=== PATIENT | female | born 1990 | race American Indian/Alaskan Native ===

== ENCOUNTER 2021-12-30 02:54 | Emergency (ER) | payer MEDICAID ==
[2021-12-30 04:08] LABS: Hematocrit 33.9 % (30.3-42.9); Mean Corpuscular HGB Conc 32 % (30-34); Mean Corpuscular Volume 86 fl (79-97); Platelet Count 349 K/mm3 (140-440); Red Blood Count 3.96 M/mm3 (3.65-5.03); Red Cell Distribution Width 14.7 % (13.2-15.2)
[2021-12-30 04:23] LABS: Basophils % (Auto) 0.6 % (0.0-1.8); Eosinophils # (Auto) 0.1 K/mm3 (0.0-0.4); Lymphocytes # (Auto) 1.8 K/mm3 (1.2-5.4); Lymphocytes % (Auto) 22.9 % (13.4-35.0); Monocytes # (Auto) 0.4 K/mm3 (0.0-0.8)
[2021-12-30] MEDS ORDERED: traMADol 50 MG TAB PO ONE (08:43)
--- NOTE | 2021-12-30 09:44 | Emergency Department Report ---
ED Female HPI - General Chief complaint: Vaginal Bleeding Stated complaint: VAGINAL BLEEDING, CRAMPS Time Seen by Provider: 12/30/21 08:43 Source: patient Mode of arrival: Stretcher Limitations: No Limitations - History of Present Illness Initial comments: Patient 31-year-old female who is A1 2 miscarriage 3 months ago. States for cycle since with heavy bleeding. There is no fevers no chills no nausea no vomiting abdominal cramping is rated at 4/10. Patient denies dysuria frequency or urgency. 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 Bleeding is moderate requiring 3-4 pads daily. There is no dizziness, lightheadedness no shortness of breath. Symptoms are improved with nothing tried. Symptoms are exacerbated by activity and movement. Patient is tolerating p.o. intake without nausea or vomiting. MD Complaint: vaginal bleeding - Related Data Previous Rx's Medication Instructions Recorded Last Taken Type Ibuprofen [Motrin 800 MG tab] 800 mg PO Q8HR PRN #30 tablet 12/30/21 Unknown Rx traMADoL [Ultram 50 MG tab] 50 mg PO Q6HR PRN #3 tablet 12/30/21 Unknown Rx Allergies Allergy/AdvReac Type Severity Reaction Status Date / Time No Known Allergies Allergy Unverified 12/30/21 03:12 ED Review of Systems ROS: Stated complaint: VAGINAL BLEEDING, CRAMPS Other details as noted in HPI Constitutional: denies: chills, fever Eyes: denies: eye pain, eye discharge, vision change ENT: denies: ear pain, throat pain Respiratory: denies: cough, shortness of breath, wheezing Cardiovascular: denies: chest pain, palpitations Endocrine: no symptoms reported Gastrointestinal: abdominal pain (Described as cramping). denies: diarrhea, constipation, melena Genitourinary: abnormal menses. denies: urgency, dysuria, frequency, hematuria, discharge Musculoskeletal: back pain Skin: denies: rash, lesions Neurological: denies: headache, weakness, paresthesias, vertigo Psychiatric: denies: anxiety, depression Hematological/Lymphatic: denies: easy bleeding, easy bruising ED Past Medical Hx - Past Medical History Previous Medical History?: No - Surgical History Past Surgical History?: No - Social History Smoking Status: Never Smoker Substance Use Type: None - Medications Home Medications: Home Medications Medication Instructions Recorded Confirmed Last Taken Type Ibuprofen [Motrin 800 MG tab] 800 mg PO Q8HR PRN #30 tablet 12/30/21 Unknown Rx traMADoL [Ultram 50 MG tab] 50 mg PO Q6HR PRN #3 tablet 12/30/21 Unknown Rx ED Physical Exam - General Limitations: No Limitations General appearance: alert, in no apparent distress - Head Head exam: Present: atraumatic, normocephalic - Eye Eye exam: Present: normal appearance, EOMI Pupils: Present: normal accommodation - ENT ENT exam: Present: mucous membranes moist - Neck Neck exam: Present: normal inspection, full ROM. Absent: tenderness, lymphadenopathy - Respiratory Respiratory exam: Present: normal lung sounds bilaterally. Absent: respiratory distress, wheezes, stridor - Cardiovascular Cardiovascular Exam: Present: regular rate, normal rhythm, normal heart sounds. Absent: systolic murmur, diastolic murmur, rubs, gallop - GI/Abdominal GI/Abdominal exam: Present: soft, normal bowel sounds. Absent: distended, tenderness, guarding, rebound, rigid, bruit, hernia - Rectal Rectal exam: Present: deferred - Extremities Exam Extremities exam: Present: normal inspection, full ROM, normal capillary refill. Absent: pedal edema - Back Exam Back exam: Present: normal inspection, full ROM. Absent: CVA tenderness (R), CVA tenderness (L) - Neurological Exam Neurological exam: Present: alert, CN II-XII intact, normal gait - Expanded Neurological Exam Expanded Patient oriented to: Present: person, place, time - Psychiatric Psychiatric exam: Present: normal affect, normal mood - Skin Skin exam: Present: warm, dry, intact, normal color. Absent: rash ED Course Vital Signs 12/30/21 03:13 Temperature 98 F Pulse Rate 80 Respiratory 18 Rate Blood Pressure 110/80 O2 Sat by Pulse 100 Oximetry ED Medical Decision Making - Lab Data Result diagrams: 12/30/21 03:39 Labs 12/30/21 12/30/21 12/30/21 03:39 03:39 03:39 WBC 8.1 RBC 3.96 Hgb 11.0 Hct 33.9 MCV 86 MCH 28 MCHC 32 RDW 14.7 Plt Count 349 Lymph % (Auto) 22.9 [place] % (Auto) 5.0 Eos % (Auto) 1.0 Baso % (Auto) 0.6 Lymph # (Auto) 1.8 [place] # (Auto) 0.4 Eos # (Auto) 0.1 Baso # (Auto) 0.0 Seg Neutrophils % 70.5 H Seg Neutrophils # 5.5 HCG, Quant < 2 Blood Type B POSITIVE - Medical Decision Making CBC is normal, hCG is negative. Patient denies dysuria frequency urgency or dysuria. However UA is pending. Pain is relieved with medication given in ED. Plan will be DC to home, NSAIDs as needed pain, follow-up with [employer]CHOOL ATTENDANCE SECRETARY as scheduled next week. Return to emergency department should symptoms worsen. Patient verbalized agreement and understanding of discharge plan. Patient will be DC'd to home in stable condition at this time. Will call patient if abnormal UA. Patient currently alert oriented x3 tolerating p.o. intake pain is reduced to 2/10 at this time. Critical care attestation.: If time is entered above; I have spent that time in minutes in the direct care of this critically ill patient, excluding procedure time. ED Disposition Clinical Impression: Dysmenorrhea Disposition: 01 HOME / SELF CARE / HOMELESS Is pt being admited?: No Does the pt Need Aspirin: No Condition: Stable Instructions: Dysmenorrhea Additional Instructions: Take medications as prescribed, follow-up with your doctor in 2 to 3 days. Return to emergency department should symptoms worsen. Prescriptions: Ibuprofen [Motrin 800 MG tab] 800 mg PO Q8HR PRN #30 tablet PRN Reason: pain traMADoL [Ultram 50 MG tab] 50 mg PO Q6HR PRN #3 tablet PRN Reason: severe pain Referrals: TIA CEBALLOS MD [Staff Physician] - 2-3 Days Forms: Work/School Release Form(ED) Time of Disposition: 09:54
[2021-12-30 10:19] VITALS: BP 124/78
[2021-12-30 10:36] LABS: Bilirubin,Urine NEG (Negative); Blood,Urine LG (Negative); Color,Urine Red (Yellow); Mucus,Urine FEW /HPF; Urobilinogen,Urine < 2.0 mg/dL (<2.0)
[2021-12-30 10:37] LABS: RBC,Urine > 182.0 /HPF (0.0-6.0)
== END 2021-12-30 10:24 | disposition home or self-care (01) ==
LOC: ED 02:54
DX: N94.6 Dysmenorrhea, unspecified (principal)
CPT/HCPCS: 36415; 81001; 84702; 85025; 86900; 86901; 99284

== ENCOUNTER 2021-12-31 00:40 | Emergency (ER) | payer MEDICAID ==
--- NOTE | 2021-12-31 08:38 | Emergency Department Report ---
ED Dizziness HPI - General Chief Complaint: Syncope Stated Complaint: SYNCOPE Time Seen by Provider: 12/31/21 07:31 Source: patient Mode of arrival: Ambulatory Limitations: No Limitations - History of Present Illness Initial Comments: Of note, the pt states she did not pass out. She states she was waiting for a ride to take her home from her ER visit when she felt dizzy and lightheaded. Staff members report the pt did not pass out, fall, have head injury, or any LOC. Pt denies cp, sob, difficulty breathing, worsening vaginal bleeding, or having any abdominal pain. She denies any symptoms at this time. Pain 0/10. - Related Data Previous Rx's Medication Instructions Recorded Last Taken Type Ibuprofen [Motrin 800 MG tab] 800 mg PO Q8HR PRN #30 tablet 12/30/21 Unknown Rx traMADoL [Ultram 50 MG tab] 50 mg PO Q6HR PRN #3 tablet 12/30/21 Unknown Rx Allergies Allergy/AdvReac Type Severity Reaction Status Date / Time No Known Allergies Allergy Unverified 12/30/21 03:12 ED Review of Systems ROS: Stated complaint: SYNCOPE Other details as noted in HPI Comment: All other systems reviewed and negative Constitutional: no symptoms reported, see HPI Eyes: denies: as per HPI, eye pain, eye discharge, vision change ENT: denies: ear pain, throat pain, dental pain, hearing loss, epistaxis Respiratory: denies: see HPI, cough, orthopnea, shortness of breath, SOB with exertion Cardiovascular: denies: chest pain, palpitations, dyspnea on exertion, orthopnea, edema, syncope, paroxysmal nocturnal dyspnea Endocrine: see HPI. denies: no symptoms reported, excessive sweating, flushing, intolerance to cold, intolerance to heat, increased hunger, increased thirst, increased urine, unexplained weight gain, unexplained weight loss Gastrointestinal: denies: abdominal pain, nausea, vomiting, constipation, hematemesis, melena Genitourinary: denies: urgency, dysuria, frequency, hematuria, discharge, abnormal menses, dyspareunia Musculoskeletal: denies: back pain, joint swelling, arthralgia Skin: denies: rash, lesions, change in color, change in hair/nails, pruritus Neurological: other (dizziness). denies: headache, weakness, numbness, paresthesias, confusion Psychiatric: denies: anxiety, depression, auditory hallucinations, visual hallucinations, homicidal thoughts Hematological/Lymphatic: denies: easy bleeding, easy bruising, swollen glands ED Past Medical Hx - Past Medical History Previous Medical History?: Yes Additional medical history: dysfunctional uterine bleeding - Social History Smoking Status: Never Smoker Substance Use Type: None - Medications Home Medications: Home Medications Medication Instructions Recorded Confirmed Last Taken Type Ibuprofen [Motrin 800 MG tab] 800 mg PO Q8HR PRN #30 tablet 12/30/21 Unknown Rx traMADoL [Ultram 50 MG tab] 50 mg PO Q6HR PRN #3 tablet 12/30/21 Unknown Rx ED Physical Exam - General Limitations: No Limitations General appearance: alert, in no apparent distress - Head Head exam: Present: atraumatic, normocephalic, normal inspection - Eye Eye exam: Present: normal appearance, PERRL, EOMI, scleral icterus Pupils: Present: normal accommodation - ENT ENT exam: Present: normal exam, normal orophraynx, mucous membranes moist, TM's normal bilaterally - Neck Neck exam: Present: normal inspection, full ROM. Absent: tenderness, meningismus, lymphadenopathy, thyromegaly - Respiratory Respiratory exam: Present: normal lung sounds bilaterally. Absent: respiratory distress, wheezes, rales, rhonchi, stridor, chest wall tenderness, accessory muscle use, decreased breath sounds ED Course Vital Signs 12/31/21 00:44 Temperature 97.8 F Pulse Rate 58 L Respiratory 18 Rate Blood Pressure 82/20 O2 Sat by Pulse 97 Oximetry ED Medical Decision Making - EKG Data -: EKG Interpreted by Me EKG shows normal: sinus rhythm Rate: normal - Medical Decision Making 31yo F Critical care attestation.: If time is entered above; I have spent that time in minutes in the direct care of this critically ill patient, excluding procedure time. ED Disposition Disposition: 01 HOME / SELF CARE / HOMELESS Is pt being admited?: No Does the pt Need Aspirin: No Condition: Stable Additional Instructions: Please call your flasher adjuster to obtain an immediate follow up appointment. Be sure to drink plenty of fluids to stay hydrated. Take over the counter ibuprofen and/or acetaminophen, as needed, for pain. Return to the nearest emergency department as soon as possible if you develop severe or worsening dizziness, any loss of consciousness, inability to tolerate liquids/solids, or if any other new worrisome symptoms develop.
[2021-12-31 11:49] VITALS: BP 116/63
--- NOTE | 2022-01-01 10:01 | Electrocardiograph Report ---
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
--- NOTE | 2022-01-01 10:02 | Electrocardiograph Report ---
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
== END 2021-12-31 11:50 | disposition home or self-care (01) ==
LOC: ED 00:40
DX: R42 Dizziness and giddiness (principal)
CPT/HCPCS: 82962; 93005; 99282